=== PATIENT | male | born 1965 | race African-American/Black ===

== ENCOUNTER 2016-07-22 15:17 | Inpatient (IN) | payer OTHER ==
[~2016-07-22] VITALS: Ht 188 cm; Wt 83.0 kg
[2016-07-22] MEDS ORDERED: METHYLPRED SOD SUCC 125 MG/2 ML VIAL ONE (16:02)
[2016-07-22] MEDS ORDERED: ETOMIDATE 2 MG/ML 20 ML SYR IV ONE (17:08)
[2016-07-22] MEDS ORDERED: LIDOCAINE 2% 20 ML ONE (17:08)
[2016-07-22] MEDS ORDERED: SODIUM CHLORIDE 0.9% 1,000 ML ONE (17:09)
[2016-07-22] MEDS ORDERED: BISACODYL 10 MG SUPP RECTAL PRN (18:05)
[2016-07-22] MEDS ORDERED: ONDANSETRON 4 MG VIAL IV PRN (18:05)
[2016-07-22] MEDS ORDERED: MORPHINE 2 MG/ML SYR IV PRN (18:05)
[2016-07-22] MEDS ORDERED: BISACODYL EC 5 MG TAB PO PRN (18:05)
[2016-07-22] MEDS ORDERED: MAG HYDROX 30 ML UDC PO PRN (18:05)
[2016-07-22] MEDS ORDERED: ALU/MAG/SIM 30 ML UDC PO PRN (18:05)
[2016-07-22] MEDS ORDERED: SALINE FLUSH 10 ML FLUSH PRN (18:05)
[2016-07-22 19:24] VITALS: BP_SYST 122; RESP 18; TEMP 98.5; Ht 188 cm; Wt 83.0 kg
[2016-07-22] MEDS ORDERED: Flu Vaccine Quadrivalent 60 MCG/0.5 ML IM.VACC ONE (20:10)
[2016-07-22] MEDS: NEB-XOPENEX 1.25 MG/3 ML INH SCH ×2 (20:15→23:49)
[2016-07-22] MEDS: SALINE FLUSH 10 ML FLUSH SCH (20:34)
[2016-07-22] MEDS: LEVOFLOXACIN 750 MG/150 ML 150 ML IV SCH (20:34)
[2016-07-22] MEDS: SODIUM CHLORIDE 0.9% 1,000 ML IV SCH (20:35)
[2016-07-22 22:31] VITALS: BP_SYST 128; RESP 18; TEMP 97.5
[2016-07-23] VITALS (7 sets, daily range): BP systolic 110–140; RESP 16–20; TEMP 95.7–98
[2016-07-23] MEDS: FAMOTIDINE 20 MG TAB PO SCH ×3 (00:06→20:40)
[2016-07-23] MEDS: SODIUM CHLORIDE 0.9% FLUSH BAG 500 ML IV SCH (06:00)
[2016-07-23] MEDS: NEB-XOPENEX 1.25 MG/3 ML INH SCH ×4 (06:53→23:46)
[2016-07-23] MEDS: SALINE FLUSH 10 ML FLUSH SCH ×2 (08:00→20:39)
[2016-07-23] MEDS: SODIUM CHLORIDE 0.9% 1,000 ML IV SCH (09:53)
[2016-07-23] MEDS: LEVOFLOXACIN 750 MG/150 ML 150 ML IV SCH (09:53)
[2016-07-23] MEDS ORDERED: TUBERCULIN PPD 5 UNIT SYR ID.VACC ONE (11:30)
[2016-07-23] MEDS ORDERED: NEB-NACL 3% 4 ML NEBU INH ONE (11:33)
[2016-07-24 03:43] VITALS: BP_SYST 110; RESP 17; TEMP 98.5
[2016-07-24] MEDS: SODIUM CHLORIDE 0.9% FLUSH BAG 500 ML IV SCH (05:15)
[2016-07-24] MEDS: NEB-XOPENEX 1.25 MG/3 ML INH SCH ×4 (06:45→23:52)
[2016-07-24 08:14] VITALS: BP_SYST 124; RESP 18; TEMP 99.1
[2016-07-24] MEDS: FAMOTIDINE 20 MG TAB PO SCH ×2 (08:53→19:57)
[2016-07-24] MEDS: SALINE FLUSH 10 ML FLUSH SCH ×2 (08:53→19:56)
[2016-07-24] MEDS ORDERED: ACETAMINOPHEN 325 MG TAB PO PRN (09:00)
[2016-07-24 11:21] VITALS: BP_SYST 102; RESP 16; TEMP 97.7
[2016-07-24] MEDS ORDERED: PHARMACY TO DOSE CEFEPIME IV SCH (14:10)
[2016-07-24 15:35] VITALS: BP_SYST 124; RESP 16; TEMP 99.1
[2016-07-24] MEDS: CEFEPIME 2000 MG/100 ML D5W 100 ML IV SCH ×2 (16:04→23:20)
[2016-07-24] MEDS ORDERED: TEMAZEPAM 7.5 MG CAP PO PRN (18:55)
[2016-07-24 19:58] VITALS: BP_SYST 126; RESP 18; TEMP 99.3
[2016-07-25 00:02] VITALS: BP_SYST 116; RESP 18; TEMP 99.7
[2016-07-25 04:15] VITALS: BP_SYST 102; RESP 18; TEMP 98.6
[2016-07-25] MEDS: SODIUM CHLORIDE 0.9% FLUSH BAG 500 ML IV SCH (05:56)
[2016-07-25] MEDS: NEB-XOPENEX 1.25 MG/3 ML INH SCH ×4 (06:37→23:43)
[2016-07-25 07:30] VITALS: BP_SYST 114; RESP 18; TEMP 98.8
[2016-07-25] MEDS: CEFEPIME 2000 MG/100 ML D5W 100 ML IV SCH ×2 (08:44→15:27)
[2016-07-25] MEDS: SALINE FLUSH 10 ML FLUSH SCH ×2 (08:44→20:22)
[2016-07-25] MEDS: FAMOTIDINE 20 MG TAB PO SCH ×2 (08:44→20:21)
[2016-07-25 11:20] VITALS: BP_SYST 106; RESP 18; TEMP 98.9
[2016-07-25 19:43] VITALS: BP_SYST 130; RESP 16; TEMP 98.6
[2016-07-25] MEDS ORDERED: SKIN TEST: READ AND RECORD XX SCH (21:00)
[2016-07-25 23:53] VITALS: BP_SYST 110; RESP 18; TEMP 99.7
[2016-07-26] VITALS (7 sets, daily range): BP systolic 113–128; RESP 18–20; TEMP 98.5–99.2
[2016-07-26] MEDS: SODIUM CHLORIDE 0.9% FLUSH BAG 500 ML IV SCH (06:00)
[2016-07-26] MEDS: NEB-XOPENEX 1.25 MG/3 ML INH SCH ×4 (06:30→22:26)
[2016-07-26] MEDS: FAMOTIDINE 20 MG TAB PO SCH (08:39)
[2016-07-26] MEDS: SALINE FLUSH 10 ML FLUSH SCH (08:39)
[2016-07-26] MEDS ORDERED: MISSING DOSE XX ONE (18:55)
== END 2016-07-26 22:50 | disposition short-term general hospital (02) | DRG 200 ==
LOC: ENRESERVTM → ENRESERVDT → ER 15:17 → EMR 18:02 → ENPENDDIS 18:02 → 4THE 19:04 → PCU2 22:30 → 3NT 07-25 16:44
PROVIDERS: ADMIT Internal Medicine; ATTEND Internal Medicine
PROC: 0W9930Z Drainage of Right Pleural Cavity with Drainage Device, Percutaneous Approach (ICD-10-PCS; principal; 2016-07-22)
DX: J93.12 Secondary spontaneous pneumothorax (principal); J98.19 Other pulmonary collapse; J98.4 Other disorders of lung; J47.9 Bronchiectasis, uncomplicated; Z92.3 Personal history of irradiation; Z92.21 Personal history of antineoplastic chemotherapy; Z85.89 Personal history of malignant neoplasm of other organs and systems; R59.1 Generalized enlarged lymph nodes; R61 Generalized hyperhidrosis; R53.83 Other fatigue; Z22.8 Carrier of other infectious diseases; G47.00 Insomnia, unspecified; Z87.891 Personal history of nicotine dependence
CPT/HCPCS: 71010; 71020; 71250; 80048; 80053; 81003; 82085; 82103; 82550; 82553; 82784; 82785; 83880; 84484; 85025; 85610; 85652; 85730; 86003; 86038; 86141; 86200; 86235; 86255; 86256; 86329; 86431; 86480; 86580; 86701; 87071; 87205; 87206; 87278; 87299; 89230; 94640; 94799; 96374; 99223; 99232; 99233; 99239